=== PATIENT | female | born 1980 | race Caucasian/White ===

== ENCOUNTER → 2016-06-26 | Outpatient (CLI) | payer BC | END | disposition home or self-care (01) | LOC: MW.CHOBGYN 10:53 | PROVIDERS: ATTEND Obstetrics & Gynecology | DX: R87.619 Unspecified abnormal cytological findings in specimens from cervix uteri (principal) | CPT/HCPCS: 88305 ==

== ENCOUNTER 2019-10-20 10:37 | Day surgery (SDC) | payer BC ==
[2019-10-20] MEDS ORDERED: Lidocaine 2% 5 ML SDV INJECT ONE (12:00)
[2019-10-20] MEDS ORDERED: Ropivacaine 0.5% 5 MG/ML 30 ML SDV INJECT ONE (12:00)
[2019-10-20] MEDS ORDERED: Iopamidol 200-M 10 ML vial ITHECAL ONE (12:00)
[2019-10-20] MEDS ORDERED: Betamethasone Acetate/Betamethasone Sod Phosphate 30 MG/5 ML MDV EPIDUR ONE (12:00)
--- NOTE | 2019-10-20 17:57 | OR ---
SURGEON: Marisela Cano D.O. DATE OF PROCEDURE: 10/20/2019 PRIMARY SURGEON: Marisela Cano DO ASSISTANTS: OR staff present: 1. Eboni De La Torre RT. 2. Ga Blankenship RN. 3. Daniel Ochoa RN. WOUND CLASS: I. PREOPERATIVE DIAGNOSES: 1. L5-S1 degenerative disk disease. 2. Right lumbosacral radiculopathy. POSTOPERATIVE DIAGNOSES: 1. L5-S1 degenerative disk disease. 2. Right lumbosacral radiculopathy. PROCEDURES PERFORMED: 1. Right transforaminal epidural steroid injection at S1. 2. Fluoroscopic guidance for needle placement. 3. Local with oral Valium for sedation. SCREENING QUESTIONS: The patient answered "no" to all of the following questions: 1. Are you allergic to iodine, Betadine or latex? 2. Do you have a bleeding disorder? 3. Do you have any joint replacements, heart valve replacements, or a pacemaker? 4. Are you allergic to anti-inflammatories or blood thinners? 5. Do you have any current local or systemic infections? MEDICAL NECESSITY: This is a patient with a history of chronic low back pain and lower extremity radicular pain in the above dermatomal pattern that comes in for the above diagnostic and therapeutic procedure. Pertinent positives and negatives for this suspected disease process along with the diagnostic findings and testing are in the patient's history and physical exam. The most salient feature includes radicular pain in the above dermatomal pattern. The patient had failed attempts at conservative therapy including physical therapy, nonsteroidal anti- inflammatory drugs, and other medications. No contraindications to perform this procedure including medical, no bleeding disorders or infections, no psychological, no antisocial personality disorder or active addiction disorder. There are no work-related issues, and, in general, the patient does not have any history of multiple prior interventions, surgeries or nerve blocks which have failed to return the patient to function. The patient's other symptoms to be treated include numbness, paresthesia, dysesthesia or hypoesthesia referred into the left lower extremity or any weakness in the involved myotome. This procedure is being performed in accordance with national guidelines as written by the [employer] (ZAID). DESCRIPTION OF PROCEDURE: The patient had the procedure thoroughly explained including risks, benefits and alternatives. Consent was signed in my clinic indicating understanding and willingness to proceed. The patient presented to [facility] [place] where the patient was escorted to the dressing room to disrobe and change into a hospital gown. Preoperative vital signs were taken and stable. The patient reported that Valium was taken prior to the procedure. The patient was brought to the procedure room and placed in the prone position on the table. A pillow was placed under the abdomen in order to flatten the lumbar lordosis. The back was prepped with ChloraPrep and sterilely draped. All personnel in the operating room were dressed in appropriate attire including surgical scrubs, head and shoe covers. This was to ensure sterility while in the treatment room. During the time fluoroscopy was in use, all personnel in the operating room wore lead huggins with thyroid collars. Sterile technique was used during the procedure. The fluoroscope was placed for the right S1 transforaminal epidural steroid injection. There was no sign of infection at the skin site for needle insertion. The skin was anesthetized with 2% lidocaine with a 27 gauge 1-1/2 inch needle. Then, a 22 gauge 3-1/2 inch spinal needle, advanced to the right S1. Under direct fluoroscopic guidance needle position was verified in three views; AP, oblique and lateral, with 0.2 cubic centimeters increments of Isovue- 200 dye. No intravascular flow pattern was observed under live fluoroscopy. Then 12 milligrams of Celestone was slowly injected after negative aspiration of heme, cerebrospinal fluid and no paresthesias were noted. The needle was cleared prior to removal from the skin. No adverse reactions were noted. The patient was brought to the recovery room awake and in good condition by my staff. The patient was monitored and discharge instructions were given after a brief stay in the recovery area. Both oral and written discharge and follow up instructions were given. The patient will follow up in the clinic in 3-4 weeks post procedure to evaluate the efficacy. The patient verbalized understanding including understanding of those signs and symptoms that would require emergency care and knows how to contact the office if there are any problems or questions in the meantime. PREOPERATIVE PAIN: 5+/10. POSTOPERATIVE PAIN: 2/10. FOLLOWUP: In the Pain Clinic in 3 weeks. HOGLCHR / MODL /[id number] [facility]
== END 2019-10-20 12:55 | disposition home or self-care (01) ==
LOC: MW.SDS 10:37
PROVIDERS: ATTEND Anesthesiology
DX: M51.17 Intervertebral disc disorders with radiculopathy, lumbosacral region (principal); G47.00 Insomnia, unspecified; G57.90 Unspecified mononeuropathy of unspecified lower limb; M81.0 Age-related osteoporosis without current pathological fracture; M53.3 Sacrococcygeal disorders, not elsewhere classified; M41.9 Scoliosis, unspecified; F17.210 Nicotine dependence, cigarettes, uncomplicated; Z88.1 Allergy status to other antibiotic agents; Z91.011 Allergy to milk products; Z79.899 Other long term (current) drug therapy
CPT/HCPCS: 64483; J0702; J2001; J2795; Q9966

== ENCOUNTER 2019-11-24 12:01 | Day surgery (SDC) | payer BC, OTHER ==
[2019-11-24] MEDS ORDERED: Iopamidol 200-M 10 ML vial ITHECAL ONE (13:30)
[2019-11-24] MEDS ORDERED: Betamethasone Acetate/Betamethasone Sod Phosphate 30 MG/5 ML MDV EPIDUR ONE (13:30)
[2019-11-24] MEDS ORDERED: Lidocaine 2% 5 ML SDV INJECT ONE (13:30)
[2019-11-24] MEDS ORDERED: Ropivacaine 0.5% 5 MG/ML 30 ML SDV INJECT ONE (13:30)
--- NOTE | 2019-11-24 21:29 | OR ---
SURGEON: Marisela Cano D.O. DATE OF PROCEDURE: 11/24/2019 PRIMARY SURGEON: Marisela Cano DO ASSISTANTS: OR staff present: 1. Alba Sutherland RT. 2. Yung Koroma RN. 3. Marla Talbot RN. PREOPERATIVE DIAGNOSES: 1. Lumbar degenerative disk disease, L5-S1. 2. Right lower extremity L5-S1 radiculopathy. 3. Chronic low back pain. POSTOPERATIVE DIAGNOSES: 1. Lumbar degenerative disk disease, L5-S1. 2. Right lower extremity L5-S1 radiculopathy. 3. Chronic low back pain. PROCEDURES PERFORMED: 1. Right transforaminal epidural steroid injection at S1. 2. Fluoroscopic guidance for needle placement. 3. Local with oral Valium for sedation. SCREENING QUESTIONS: The patient answered "no" to all of the following questions: 1. Are you allergic to iodine, Betadine or latex? 2. Do you have a bleeding disorder? 3. Do you have any joint replacements, heart valve replacements, or a pacemaker? 4. Are you allergic to anti-inflammatories or blood thinners? 5. Do you have any current local or systemic infections? MEDICAL NECESSITY: This is a patient with a history of chronic low back pain and lower extremity radicular pain in the above dermatomal pattern that comes in for the above diagnostic and therapeutic procedure. Pertinent positives and negatives for this suspected disease process along with the diagnostic findings and testing are in the patient's history and physical exam. The most salient feature includes radicular pain in the above dermatomal pattern. The patient had failed attempts at conservative therapy including physical therapy, nonsteroidal anti- inflammatory drugs, and other medications. No contraindications to perform this procedure including medical, no bleeding disorders or infections, no psychological, no antisocial personality disorder or active addiction disorder. There are no work-related issues, and, in general, the patient does not have any history of multiple prior interventions, surgeries or nerve blocks which have failed to return the patient to function. The patient's other symptoms to be treated include numbness, paresthesia, dysesthesia or hypoesthesia referred into the left lower extremity or any weakness in the involved myotome. This procedure is being performed in accordance with national guidelines as written by the [employer] (ZAID). DESCRIPTION OF PROCEDURE: The patient had the procedure thoroughly explained including risks, benefits and alternatives. Consent was signed in my clinic indicating understanding and willingness to proceed. The patient presented to [facility] [place] where the patient was escorted to the dressing room to disrobe and change into a hospital gown. Preoperative vital signs were taken and stable. The patient reported that Valium was taken prior to the procedure. The patient was brought to the procedure room and placed in the prone position on the table. A pillow was placed under the abdomen in order to flatten the lumbar lordosis. The back was prepped with ChloraPrep and sterilely draped. All personnel in the operating room were dressed in appropriate attire including surgical scrubs, head and shoe covers. This was to ensure sterility while in the treatment room. During the time fluoroscopy was in use, all personnel in the operating room wore lead huggins with thyroid collars. Sterile technique was used during the procedure. The fluoroscope was placed for the right S1 transforaminal epidural steroid injection. There was no sign of infection at the skin site for needle insertion. The skin was anesthetized with 2% lidocaine with a 27 gauge 1-1/2 inch needle. Then, a 22 gauge 3-1/2 inch spinal needle, advanced to the right S1. Under direct fluoroscopic guidance needle position was verified in three views; AP, oblique and lateral, with 0.2 cubic centimeters increments of Isovue- 200 dye. No intravascular flow pattern was observed under live fluoroscopy. Then 12 milligrams of Celestone was slowly injected after negative aspiration of heme, cerebrospinal fluid and no paresthesias were noted. The needle was cleared prior to removal from the skin. No adverse reactions were noted. The patient was brought to the recovery room awake and in good condition by my staff. The patient was monitored and discharge instructions were given after a brief stay in the recovery area. Both oral and written discharge and follow up instructions were given. The patient will follow up in the clinic in 3-4 weeks post procedure to evaluate the efficacy. The patient verbalized understanding including understanding of those signs and symptoms that would require emergency care and knows how to contact the office if there are any problems or questions in the meantime. PREOPERATIVE PAIN: 8/10. POSTOPERATIVE PAIN: 3 to 4 out of 10. FOLLOWUP: In the Pain Clinic in 1 month. HOGLCHR / MODL /[id number]
== END 2019-11-24 13:50 | disposition home or self-care (01) ==
LOC: MW.SDS 12:01
PROVIDERS: ATTEND Anesthesiology
DX: G89.29 Other chronic pain (principal); M51.17 Intervertebral disc disorders with radiculopathy, lumbosacral region; G47.00 Insomnia, unspecified; G43.909 Migraine, unspecified, not intractable, without status migrainosus; M85.80 Other specified disorders of bone density and structure, unspecified site; F17.210 Nicotine dependence, cigarettes, uncomplicated; M81.0 Age-related osteoporosis without current pathological fracture; Z88.1 Allergy status to other antibiotic agents; Z88.2 Allergy status to sulfonamides; Z91.011 Allergy to milk products

== ENCOUNTER 2020-02-23 11:49 | Day surgery (SDC) | payer BC ==
[2020-02-23] MEDS ORDERED: Lidocaine 2% 5 ML SDV INJECT ONE (13:30)
[2020-02-23] MEDS ORDERED: Betamethasone Acetate/Betamethasone Sod Phosphate 30 MG/5 ML MDV EPIDUR ONE (13:30)
[2020-02-23] MEDS ORDERED: Iopamidol 200-M 10 ML vial ITHECAL ONE (13:30)
[2020-02-23] MEDS ORDERED: Ropivacaine 0.5% 5 MG/ML 30 ML SDV INJECT ONE (13:30)
--- NOTE | 2020-02-23 16:39 | OR ---
SURGEON: Marisela Cano D.O. DATE OF PROCEDURE: 02/23/2020 PRIMARY SURGEON: Marisela Cano DO PREOPERATIVE DIAGNOSES: 1. Lumbar degenerative disk disease. 2. Lumbar radiculopathy, L5-S1, right lower extremity. POSTOPERATIVE DIAGNOSES: 1. Lumbar degenerative disk disease. 2. Lumbar radiculopathy, L5-S1, right lower extremity. PROCEDURES PERFORMED: 1. Right S1 transforaminal epidural steroid injection. 2. Fluoroscopic guidance for needle placement. 3. Local with oral Valium for sedation. SCREENING QUESTIONS: The patient answered "no" to all of the following questions: 1. Are you allergic to iodine, Betadine or latex? 2. Do you have a bleeding disorder? 3. Do you have any joint replacements, heart valve replacements, or a pacemaker? 4. Are you allergic to anti-inflammatories or blood thinners? 5. Do you have any current local or systemic infections? DESCRIPTION OF PROCEDURE: The patient had the procedure thoroughly explained including risks, benefits and alternatives. Consent was signed in my clinic indicating understanding and willingness to proceed. The patient presented to [facility] [place] where the patient was escorted to the dressing room to disrobe and change into a hospital gown. Preoperative vital signs were taken and stable. The patient reported that Valium was taken prior to the procedure. The patient was brought to the procedure room and placed in the prone position on the table. A pillow was placed under the abdomen in order to flatten the lumbar lordosis. The back was prepped with ChloraPrep and sterilely draped. All personnel in the operating room were dressed in appropriate attire including surgical scrubs, head and shoe covers. This was to ensure sterility while in the treatment room. During the time fluoroscopy was in use, all personnel in the operating room wore lead huggins with thyroid collars. Sterile technique was used during the procedure. The fluoroscope was placed for the right S1 transforaminal epidural steroid injection. There was no sign of infection at the skin site for needle insertion. The skin was anesthetized with 2% lidocaine with a 27 gauge 1-1/2 inch needle. Then, a 22 gauge 3-1/2 inch spinal needle, advanced to the right S1. Under direct fluoroscopic guidance needle position was verified in three views; AP, oblique and lateral, with 0.2 cubic centimeters increments of Isovue- 200 dye. No intravascular flow pattern was observed under live fluoroscopy. Then 12 milligrams of Celestone was slowly injected after negative aspiration of heme, cerebrospinal fluid and no paresthesias were noted. The needle was cleared prior to removal from the skin. No adverse reactions were noted. The patient was brought to the recovery room awake and in good condition by my staff. The patient was monitored and discharge instructions were given after a brief stay in the recovery area. Both oral and written discharge and follow up instructions were given. The patient will follow up in the clinic in 3-4 weeks post procedure to evaluate the efficacy. The patient verbalized understanding including understanding of those signs and symptoms that would require emergency care and knows how to contact the office if there are any problems or questions in the meantime. PREOPERATIVE PAIN: 6/10. POSTOPERATIVE PAIN: 0/10. ASSISTANTS: OR staff present: 1. Ariel Aviles RN. 2. Irvin Sanchez RN. 3. RT Cristofer. AMNA / KAVITA /[id number] EDDIE
== END 2020-02-23 14:35 ==
LOC: MW.SDS 11:49
PROVIDERS: ATTEND Anesthesiology
DX: G89.29 Other chronic pain (principal); M51.17 Intervertebral disc disorders with radiculopathy, lumbosacral region; M51.16 Intervertebral disc disorders with radiculopathy, lumbar region; M41.9 Scoliosis, unspecified; G43.909 Migraine, unspecified, not intractable, without status migrainosus; G57.90 Unspecified mononeuropathy of unspecified lower limb; F17.210 Nicotine dependence, cigarettes, uncomplicated; Z88.1 Allergy status to other antibiotic agents; Z88.8 Allergy status to other drugs, medicaments and biological substances; Z88.2 Allergy status to sulfonamides; Z91.011 Allergy to milk products; Z79.899 Other long term (current) drug therapy; Z98.890 Other specified postprocedural states
CPT/HCPCS: 64483; J0702

== ENCOUNTER 2024-10-14 11:16 | Emergency (ER) | payer BC ==
[2024-10-14] MEDS: Ondansetron 4 MG/2 ML SDV IVPUSH ONE (11:39)
[2024-10-14] MEDS ORDERED: Naloxone 0.4 MG/ML SDV IVPUSH PRN (11:40)
[2024-10-14 11:41] VITALS: BP 124/81; PULSE 78
[2024-10-14 11:44] LABS: BASOPHILS ABSOLUTE AUTO 0.06 K/uL (0.00-0.20); BASOPHILS PERCENT AUTO 0.3 % (0.0-1.0); EOSINOPHILS ABSOLUTE AUTO 0.03 K/uL (0.00-0.45); EOSINOPHILS PERCENT AUTO 0.1 % (0.0-6.0); IMMATURE GRAN ABSOLUTE AUTO 0.13 K/uL (0.00-0.05); IMMATURE GRAN PERCENT AUTO 0.6 % (0.0-0.4); LYMPHOCYTES ABSOLUTE AUTO 2.76 K/uL (1.00-4.80); LYMPHOCYTES PERCENT AUTO 12.9 % (24.0-44.0); MEAN PLATELET VOLUME 9.5 fL (9.4-12.3); MONOCYTES ABSOLUTE AUTO 1.37 K/uL (0.00-0.80); MONOCYTES PERCENT AUTO 6.4 % (0.0-8.0); NEUTROPHILS ABSOLUTE AUTO 17.01 K/uL (1.80-7.70); NEUTROPHILS PERCENT AUTO 79.7 % (41.0-71.0); NRBC ABSOLUTE 0.00 K/uL (0.00-0.02); NRBC PERCENT 0.0 /100WBC (0.0-0.2); PLATELET COUNT,PLT 381 K/uL (150-400); RED BLOOD CELL COUNT 4.45 M/uL (4.10-5.30); WHITE BLOOD CELL COUNT,WBC 21.36 K/uL (3.9-11.3)
[2024-10-14] MEDS: fentaNYL 50 MCG/ML SDV IVPUSH ONE (11:45)
[2024-10-14] MEDS: Ondansetron 4 MG/2 ML SDV ONE (11:51)
[2024-10-14 11:53] LABS: INR 0.97 (0.86-1.11); PTT,PARTIAL THROMBOPLSTIN TIME 24.9 SEC (23.9-30.7)
[2024-10-14] MEDS: Heparin Sodium 5,000 Units/ML Vial IVPUSH ONE (11:53)
[2024-10-14] MEDS: Heparin Sodium/0.45% NaCl 25,000 UNITS/250 ML BAG IV SCH (11:53)
[2024-10-14] MEDS: DOBUTamine/Dextrose 5%-Water 500 MG/250 ML BAG IV SCH (11:58)
[2024-10-14 12:19] LABS: A/G RATIO 0.9 (0.9-1.6); ALANINE AMINOTRANSFERASE,ALT 24.0 IU/L (14-63); ASPARTATE AMNIOTRANSFERASE,AST 24.0 IU/L (15-37); BILIRUBIN TOTAL 1.4 mg/dL (0.2-1.0); BLOOD UREA NITROGEN,BUN 9.0 mg/dL (7.0-18.0); CARBON DIOXIDE,CO2 22.6 mmol/L (21.0-32.0); CHLORIDE,CL 100.0 mmol/L (98-107); CREATININE 1.2 mg/dL (0.6-1.0); EST CRCL DRUG DOSING (CG) 58.33 mL/min; GLUCOSE RANDOM 136.0 mg/dL (74-106); POTASSIUM,K 3.0 mmol/L (3.5-5.1); PRO B-TYPE NATRIUR PEPT,BNPPRO 1070.0 pg/mL (0-125); PROTEIN TOTAL,TP 7.8 g/dL (6.4-8.2); SODIUM,NA 137.0 mmol/L (136-145)
[2024-10-14 12:20] LABS: ESTIMATED GFR 58.0 mL/min (>60)
== END 2024-10-14 12:10 ==
LOC: MW.ED 11:16
DX: I21.3 ST elevation (STEMI) myocardial infarction of unspecified site (principal); I10 Essential (primary) hypertension; F17.210 Nicotine dependence, cigarettes, uncomplicated; Z79.899 Other long term (current) drug therapy; Z88.1 Allergy status to other antibiotic agents; Z88.2 Allergy status to sulfonamides
CPT/HCPCS: 36415; 71045; 80053; 83690; 83880; 84484; 85025; 85610; 85730; 92977; 93005; 96365; 96368; 96375; 99285; A9270; J1250; J1644; J2405; J3010; J3101; J7030; 99283

== ENCOUNTER 2024-11-08 23:07 | Emergency (ER) | payer BC ==
[2024-11-08 23:37] LABS: BASOPHILS ABSOLUTE AUTO 0.04 K/uL (0.00-0.20); BASOPHILS PERCENT AUTO 0.4 % (0.0-1.0); EOSINOPHILS ABSOLUTE AUTO 0.20 K/uL (0.00-0.45); EOSINOPHILS PERCENT AUTO 2.0 % (0.0-6.0); IMMATURE GRAN ABSOLUTE AUTO 0.02 K/uL (0.00-0.05); IMMATURE GRAN PERCENT AUTO 0.2 % (0.0-0.4); LYMPHOCYTES ABSOLUTE AUTO 1.68 K/uL (1.00-4.80); LYMPHOCYTES PERCENT AUTO 17.0 % (24.0-44.0); MEAN PLATELET VOLUME 9.8 fL (9.4-12.3); MONOCYTES ABSOLUTE AUTO 0.72 K/uL (0.00-0.80); MONOCYTES PERCENT AUTO 7.3 % (0.0-8.0); NEUTROPHILS ABSOLUTE AUTO 7.21 K/uL (1.80-7.70); NEUTROPHILS PERCENT AUTO 73.1 % (41.0-71.0); NRBC ABSOLUTE 0.00 K/uL (0.00-0.02); NRBC PERCENT 0.0 /100WBC (0.0-0.2); PLATELET COUNT,PLT 346 K/uL (150-400); RED BLOOD CELL COUNT 4.14 M/uL (4.10-5.30); WHITE BLOOD CELL COUNT,WBC 9.87 K/uL (3.9-11.3)
[2024-11-09 00:01] LABS: BLOOD UREA NITROGEN,BUN 15 mg/dL (7.0-18.0); CARBON DIOXIDE,CO2 23.8 mmol/L (21.0-32.0); CHLORIDE,CL 106 mmol/L (98-107); CREATININE 1.0 mg/dL (0.6-1.0); GLUCOSE RANDOM 104 mg/dL (74-106); POTASSIUM,K 3.7 mmol/L (3.5-5.1); SODIUM,NA 140 mmol/L (136-145)
[2024-11-09 00:07] LABS: ESTIMATED GFR 72 mL/min (>60)
[2024-11-09 00:26] VITALS: BP 133/84; PULSE 73
== END 2024-11-09 01:37 | disposition left against medical advice (07) ==
LOC: MW.ED 23:07
DX: R07.9 Chest pain, unspecified (principal); I10 Essential (primary) hypertension; F17.200 Nicotine dependence, unspecified, uncomplicated; Z88.2 Allergy status to sulfonamides; Z88.8 Allergy status to other drugs, medicaments and biological substances; Z79.82 Long term (current) use of aspirin; Z79.899 Other long term (current) drug therapy
CPT/HCPCS: 36415; 80048; 84484; 85025; 93005; 93010; 99284; 99285